=== PATIENT | male | born 1960 | race Caucasian/White ===

== ENCOUNTER → 2017-05-09 | Outpatient (CLI) | payer MEDICAID ==
[~2017-05-09] MED LIST: B/P PILL PO; BACTRIM DS 8001 TAB PO; PROSTATE PO; STOMACH PO; SYMBICORT1 AER IH; ZYRTEC-D 12HR 51 TER PO
[2017-05-09 10:25] LABS: BUN 16 mg/dL (7-18)
[2017-05-09 10:26] LABS: GFR (ESTIMATED) 69 ML/MIN (>60)
[2017-05-09 10:41] LABS: LYMPH # 2.4 K/mm3 (0.7-4.5); LYMPH % 27.5 % (10-50)
[2017-05-09 10:50] LABS: HEMOGLOBIN 15.7 g/dL (14.1-18.0)
== END ==
LOC: LAB 09:54
PROVIDERS: Nurse Practitioner Family
DX: R06.00 Dyspnea, unspecified (principal); Z00.00 Encounter for general adult medical examination without abnormal findings